=== PATIENT | male | born 1985 | race Caucasian/White ===

== ENCOUNTER 2020-01-07 14:35 | Inpatient (IN) | payer OTHER ==
[~2020-01-07] VITALS: Ht 182.9 cm; Wt 113.4 kg
--- NOTE | ~2020-01-07 | OP ---
[facility] [address] [place] [address] OPERATIVE REPORT Name: JONY CASTORENA Room: [address] IN [facility]#: [id number] Admission: 01/07/20 Attend Phys: Dillan Car Discharge: Date of : 87 Report #: [id number] THIS REPORT FOR: //name// cc: Bob Hernández Chad W. DO ~ CC: Bob Car DATE OF SERVICE: 01/08/2020 PREOPERATIVE DIAGNOSIS: Chronic cholecystitis. POSTOPERATIVE DIAGNOSIS: Chronic cholecystitis. OPERATION: Laparoscopic cholecystectomy. SURGEON: Dillan Car MD ANESTHESIA: General. ESTIMATED BLOOD LOSS: Minimal. SPECIMEN: Gallbladder. DESCRIPTION OF PROCEDURE: After informed consent was obtained, the patient was brought to the operating room and placed supine. SCDs were placed and working, preoperative antibiotics were administered, general anesthesia was induced. The abdomen was prepped and draped in a usual sterile fashion. A 10 mm incision was made below the umbilicus. Fascia was incised and a trocar was placed. Pneumoperitoneum was established. Three right upper quadrant 5 mm ports were placed. Gallbladder was grasped and retracted cephalad. Infundibulum was grasped and retracted laterally. I dissected out the cystic duct and cystic artery. The cystic plate was fully identified. Cystic duct was clipped and ligated leaving 2 clips on the remaining duct and 1 on the remaining artery. Gallbladder was then taken off the liver bed with electrocautery. It was placed into an Endopouch and removed. Fascia was then closed with a [id number] 0 Vicryl. Skin was closed with 4-0 Monocryl. Incisions were sealed with Dermabond. COMPLICATIONS: None. DISPOSITION: The patient was taken to recovery in satisfactory condition. By: [id number] 1903Jodoreen Car MD /lidia
[2020-01-07 14:43] VITALS: BP 122/83
[2020-01-07] MEDS ORDERED: CRESTOR5 MG PO (14:50)
[2020-01-07 15:14] LABS: URINE BILIRUBIN NEGATIVE (Negative); URINE BLOOD NEGATIVE (Negative); URINE CLARITY CLEAR; URINE COLOR YELLOW; URINE GLUCOSE-RANDOM NEGATIVE (Negative); URINE KETONES NEGATIVE (Negative); URINE LEUKOCYTES-REFLEX NEGATIVE (Negative); URINE NITRITE-REFLEX NEGATIVE (Negative); URINE PROTEIN NEGATIVE (Negative); URINE UROBILINOGEN 0.2 E.U./dl (0.2-1.0)
[2020-01-07 15:16] LABS: ABSOLUTE EOSINOPHILS 0.2 thou/uL (0.0-0.7); ABSOLUTE MONOCYTES 0.5 thou/uL (0.0-1.2); ABSOLUTE NEUTROPHILS 3.8 thou/uL (1.6-8.1); BASOPHILS 0.8 %; EOSINOPHILS 2.5 %; HEMATOCRIT 43.9 % (42.0-52.0); LYMPHOCYTES 30.1 %; MCH 30.2 pg (26.0-34.0); MCHC 34.1 g/dL (28.0-37.0); MCV 88.7 fL (80.0-100.0); MPV 7.5 fl. (7.2-11.1); NUCLEATED RBCS 0 /100WBC; PLATELET COUNT* 276 thou/uL (150-400); POLYS 58.6 %; RBC 4.95 mil/uL (4.50-6.00); RDW-CV 13.8 % (10.5-14.5); WBC 6.5 thou/uL (4.0-11.0)
[2020-01-07 15:21] LABS: CALCIUM 9.1 mg/dL (8.5-10.1); CREATININE 1.2 mg/dL (0.6-1.3)
[2020-01-07] MEDS ORDERED: ONDANSETRON HCL4 M2 PO (15:25)
[2020-01-07] MEDS ORDERED: NORCO 5-325 TA1 EAC2 PO (15:25)
[2020-01-07 15:26] LABS: ALBUMIN 3.8 g/dL (3.4-5.0); TOTAL BILIRUBIN 0.4 mg/dL (<0.1-1.0); TOTAL PROTEIN 7.9 g/dL (6.4-8.2)
--- NOTE | 2020-01-07 16:04 | EKG ---
[place] [address] ELECTROCARDIOGRAM REPORT Name: JONY CASTORENA Room: 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
[2020-01-07 20:08] VITALS: BP 110/71
[2020-01-07 20:20] VITALS: BP 115/81
[2020-01-08 01:19] VITALS: BP 115/81
[2020-01-08 08:10] VITALS: BP 115/81; BP 125/77
[2020-01-08 17:35] VITALS: BP 130/91
[2020-01-08 20:00] VITALS: BP 131/70
[2020-01-09 00:17] VITALS: BP 117/71
[2020-01-09 03:29] VITALS: BP 138/79
[2020-01-09 07:45] VITALS: BP 122/77
[2020-01-09] MEDS ORDERED: NORCO 10-325 T1 EACH PO (10:40)
[2020-01-09 11:01] VITALS: BP 122/77
[2020-01-09 13:54] VITALS: BP 122/77
== END 2020-01-09 11:40 | disposition home or self-care (01) | DRG 419 ==
LOC: M.ERS 14:35 → M.ORTHSURG 16:16 → M.TBA-ER 16:16 → M.ORTHSURG 20:39
PROVIDERS: Nurse Practitioner Family; ADMIT Surgery; ATTEND Surgery
PROC: 0FT44ZZ Resection of Gallbladder, Percutaneous Endoscopic Approach (ICD-10-PCS; principal; 2020-01-08)
DX: K80.44 Calculus of bile duct with chronic cholecystitis without obstruction (principal); Z20.828 Contact with and (suspected) exposure to other viral communicable diseases; Z88.8 Allergy status to other drugs, medicaments and biological substances; Z79.899 Other long term (current) drug therapy; Z28.21 Immunization not carried out because of patient refusal